=== PATIENT | female | born 1935 | race Caucasian/White ===

== ENCOUNTER 2021-09-24 09:46 | Outpatient (CLI) | payer MEDICARE, MEDICAID, SELFPAY ==
[2021-09-24 10:06] VITALS: BP 141/80; PULSE 76; RESP 18; TEMP 36.3; O2SAT 97
--- NOTE | 2021-09-24 10:38 | PDOC.PAIN_ITS ---
Pain Clinic Procedure Note Procedure Note Procedure Note: Lumbar/Sacral Medial Branch Blocks TANIKA ROJAS has been referred to the [facility] for lumbar/sacral medial branch blocks. COMMENTS: I previously evaluated the patient on 07/22/2021. Her pain VAS today pre-procedure was 8/10. Dx: Lumbosacral spondylosis without myelopathy Patient was interviewed and the medical record reviewed. There were no medical, pharmacologic, radiographic or other structural contraindications to attempting fluoroscopically guided local anesthetic lumbar/sacral medial branch blocks. Risks and expected side effects as well as potential benefit of the procedure were reviewed and voiced concerns addressed. The printed consent form was signed and witnessed. Standard time-out procedure was performed. Patient was placed in the prone position on the fluoroscopy table and automated blood pressure cuff and pulse oximeter applied. The skin entry points for approaching the anatomic target points of the segmental medial branches of bilateral L3-L5 were identified with anfluoroscopy and marked. Following thorough Chlorhexadine preparation of the skin and draping and 1% lidocaine infiltration of the skin entry points and subcutaneous tissues, a 22 gauge spinal needle was placed under fluoroscopic guidance down on to the target point for each respective segmental medial branch.Position was confirmed in A/P, oblique and lateral views with 0.25ml of omnipaque 240. At this point I injected 0.5ml of 0.5% Bupivacaine at each segmental sensory nerve. Vital signs were stable throughout the procedure and were as recorded in the docflowsheet by the nursing staff. Follow up plans and appointments were discussed and was instructed to keep careful note of how the usual pain was modified by these injections. Specifically was asked to keep a pain diary for the next 24 hours using a numeric pain scale of 0-10 and report these results at the follow-up visit. Post procedure instruction was given as documented in the nursing documentation and having met discharge criteria. Patient was discharged from the [facility]. Based on the medial branches blocked today, if the patient has adequate relief and we are able to proceed to radiofrequency ablation, the treatment should result in the denervation of the bilateral L4-L5 and L5-S1 FACET JOINTS. We would expect to denervate a total of 4 facets during the radiofrequency ablation. COMMENTS: Her post-procedure pain level was 0/10. Cedric Calixto DO, MPH [facility]-Pain Management [facility] CC: Liberty Upton
[2021-09-24] MEDS: Omnipaque 240 MG/ML 50 ML BTL IJ (10:39)
[2021-09-24] MEDS: Bupivacaine 0.5% Pres-Free 10 ML VIAL IJ (10:40)
--- NOTE | 2021-09-24 10:40 | DI.RAD_ITS ---
Exam(s) XR PAIN CLINIC LUMBAR SP 2V EXAM: XR PAIN CLINIC LUMBAR SP 2V CLINICAL HISTORY: Dx: Lumbar Spondylosis TECHNIQUE: 2D and realtime digital imaging was performed. COMPARISON: No exams were available for comparison FINDINGS: C-arm fluoroscopy was utilized by Dr. Calixto during apparent bilateral lumbar injections. Hard copy sh ow needle placement at what appear to be the L3-4, L4-5, and L5-S1 levels bilaterally. IMPRESSION: RADIATION DOSE DELIVERED: aye Marshall=8.56 mGy
[2021-09-24 10:53] VITALS: BP 140/72; PULSE 85; RESP 15; O2SAT 96
== END 2021-09-24 09:47 | disposition home or self-care (01) ==
LOC: PC 09:47
PROVIDERS: PCP Physician Assistant Medical; Visit Provider Preventive Medicine Occupational Medicine
DX: M47.817 Spondylosis without myelopathy or radiculopathy, lumbosacral region (principal)
CPT/HCPCS: 64493; 64494; 72100; Q9967

== ENCOUNTER 2021-12-10 12:13 | Outpatient (CLI) | payer MEDICARE, MEDICAID, SELFPAY ==
--- NOTE | 2021-12-10 06:00 | DI.RAD_ITS ---
Exam(s) XR PAIN CLINIC LUMBAR SP 2V EXAM: XR PAIN CLINIC LUMBAR SP 2V CLINICAL HISTORY: Dx: Lumbar Spondylosis TECHNIQUE: 2D and realtime digital imaging was performed. CONTRAST MATERIAL: Refer to procedure report. COMPARISON: No exams were available for comparison FINDINGS: Fluoroscopy was provided for Dr. Calixto during the performance of a bilateral medial branch block. Pl ease refer to the procedure report for complete details. Ka,r=14.72 mGy IMPRESSION:
[2021-12-10 12:31] VITALS: BP 124/81; PULSE 78; RESP 16; TEMP 36.5; O2SAT 97
--- NOTE | 2021-12-10 13:18 | PDOC.PAIN ---
Pain Clinic Procedure Note Procedure Note Procedure Note: Lumbar/Sacral Medial Branch Blocks TANIKA ROJAS has been referred to the [facility] for lumbar/sacral medial branch blocks. COMMENTS: She did very well with her first LMBB. Dx: Lumbosacra spondylosis without myelopathy Pre-procedure pain VAS: 7/10. Patient was interviewed and the medical record reviewed. There were no medical, pharmacologic, radiographic or other structural contraindications to attempting fluoroscopically guided local anesthetic lumbar/sacral medial branch blocks. Risks and expected side effects as well as potential benefit of the procedure were reviewed and voiced concerns addressed. The printed consent form was signed and witnessed. Standard time-out procedure was performed. Patient was placed in the prone position on the fluoroscopy table and automated blood pressure cuff and pulse oximeter applied. The skin entry points for approaching the anatomic target points of the segmental medial branches of bilateral L3-L5 were identified with fluoroscopy and marked. Following thorough Chlorhexadine preparation of the skin and draping and 1% lidocaine infiltration of the skin entry points and subcutaneous tissues, a 25 gauge 3.5 spinal needle was placed under fluoroscopic guidance down on to the target point for each respective segmental medial branch.Position was confirmed in A/P, oblique and lateral views with 0.25ml of omnipaque 240. At this point 0.5ml 2% Lidocaine was injected at each sensory nerve. Vital signs were stable throughout the procedure and were as recorded in the docflowsheet by the nursing staff. Follow up plans and appointments were discussed and was instructed to keep careful note of how the usual pain was modified by these injections. Specifically was asked to keep a pain diary for the next 24 hours using a numeric pain scale of 0-10 and report these results at the follow-up visit. Post procedure instruction was given as documented in the nursing documentation and having met discharge criteria. Patient was discharged from the [facility] Management [facility]. Based on the medial branches blocked today, if the patient has adequate relief and we are able to proceed to radiofrequency ablation, the treatment should result in the denervation of the bilateral L4-L5 and L5-S1 FACET JOINTS. We would expect to denervate a total of 4 facets during the radiofrequency ablation. COMMENTS: Post-procedure pain VAS 6/10. Cedric Calixto DO, MPH [facility]-Pain Management [facility] CC: Liberty Upton
[2021-12-10 13:21] VITALS: BP 152/72; PULSE 82; RESP 24; O2SAT 98
[2021-12-10] MEDS: Omnipaque 240 MG/ML 50 ML BTL IJ (13:21)
[2021-12-10] MEDS: Lidocaine 2% Pres-Free 2 ML VIAL IJ (13:21)
== END 2021-12-10 12:14 | disposition home or self-care (01) ==
PROVIDERS: PCP Physician Assistant Medical; Visit Provider Preventive Medicine Occupational Medicine
DX: M47.817 Spondylosis without myelopathy or radiculopathy, lumbosacral region (principal); M54.50 Low back pain, unspecified
CPT/HCPCS: 64493; 64494; 72100; Q9967